=== PATIENT | female | born 1985 | race American Indian/Alaskan Native ===

== ENCOUNTER 2016-10-14 09:29 | Inpatient (IN) | payer MEDICAID ==
--- NOTE | 2016-10-14 09:22 | History and Physical Report ---
History of Present Illness Date of examination: 10/10/16 Chief complaint: Primary C/s for previous myomectomy History of present illness: Past History : 1 Term Births: 0 Premature Births: 0 Living Children: 0 Para: 0 Mult. Births: 0 Prev : 0 Prev. attempt? 0 Aborta: 0 Elect. Ab: 0 Spont. Ab: 0 Ectopics: 0 Past Medical History: Reviewed history from 02/02/2015 and no changes required: Negative Past Medical History Past Surgical History: Reviewed history from 09/18/2015 and no changes required: Myomectomy 5 or more myomas abdominal (09/18/2015) Laparotomy ovarian cystectomy (09/18/2015)Left Past Medical History Abnormal PAP: negative Uterine Anomaly: positive Uterine Surgery (not C/S): positive, myomectomy Social Hx: Patient is Smoking History: Patient has never smoked. Infection History Hx of STD: none HIV Risk Eval: no Hepatitis B Risk Eval: low risk Personal hx. of genital herpes: no Partner hx. of genital herpes: no Rash, Viral, or Febrile illness since last LMP? no Varicella/Chicken Pox Status: Previous Disease TB Risk: no Genetic History Congenital Heart Defect: Mom: no Dad: no Oc Disease: Mom: no Dad: no Thalassemia Mom: no Dad: no Neural Tube Defect Mom: no Dad: no Down's Syndrome Mom: no Dad: no Ulices-Sachs Mom: no Dad: no Sickle Cell Disease/Trait Mom: no Dad: no Hemophilia Mom: no Dad: no Muscular Dystrophy Mom: no Dad: no Cystic Fibrosis Mom: no Dad: no [place] Chorea Mom: no Dad: no Mental Retardation Mom: no Dad: no Fragile X Mom: no Dad: no Other Genetic/Chromosomal Disorder Mom: no Dad: no Child w/other defect Mom: no Dad: no Enviromental Exposures Xray Exposure: no Medication, drug, or alcohol use since LMP: no Chemical/Other Exposure: no Exposure to Cat Liter: no Occupational Exposure to Children: none Active Medications (reviewed today): PLUS 27-1 MG TABS ( VIT-FE FUMARATE-FA) 1 po qd Current Allergies (reviewed today): No known allergies Physical Exam General appearance: well nourished, healthy appearing, no distress Chest/Lungs: respiratory effort normal, lungs clear to auscultation Cardiovascular: normal rate and rhythm Abdomen/GI: soft, nontender Past History - Obstetrical History Expected Date of Delivery: 10/26/16 Actual Gestation: 38 Week(s) 2 Day(s) : 1 Medications and Allergies Allergies Allergy/AdvReac Type Severity Reaction Status Date / Time No Known Allergies Allergy Unverified 09/12/15 08:57 Home Medications Medication Instructions Recorded Confirmed Last Taken Type HYDROcodone/APAP 5-325 [[place] 1 - 2 each PO Q4H PRN #30 tablet 08/31/1509/04/15 Rx 5-325 mg TAB] Ibuprofen [Motrin] 200 mg PO Q6H PRN 09/12/15 09/18/15 09/12/15 History Active Meds: Active Medications Citric Acid/Sodium Citrate (Bicitra) 30 ml PO ONCE ONE Stop: 10/14/16 08:19 Famotidine (Pepcid) 20 mg IV ONCE ONE Stop: 10/14/16 08:19 Cefazolin Sodium (Ancef/Sterile Water 2 Gm/20 Ml) 2 gm in 20 mls @ 80 mls/hr IV PREOP NR PRN Reason: Protocol Lactated Ringer's (Lactated Ringers) 1,000 mls @ 2,250 mls/hr IV PREOP CARRIE Stop: 10/15/16 09:27 Oxytocin/Sodium Chloride (Pitocin/Ns 20 Unit/1000ml Drip) 20 units in 1,000 mls @ 0 mls/hr IV TITR CARRIE PRN Reason: As Directed Lidocaine/Prilocaine (Emla) 1 applic TP ONCE PRN PRN Reason: for bonner catheter insertion Metoclopramide HCl (Reglan) 10 mg IV ONCE ONE Stop: 10/14/16 08:19 Results All other labs normal. Assessment and Plan - Patient Problems (1) Maternal care due to uterine scar from other previous surgery Status: Acute Plan to address problem: Problem # 1: Maternal care due to uterine scar from other previous surgery ( [id number]) Orders: OB follow up ([id number]) Urine Chemstrip (CPT-[id number]) Consent reviewed and signed.The risks and alternatives for this surgery were reviewed with the patient. She was informed of possible bleeding, infection, injury to bowel, bladder, ureters or other adjacent organs. The patient was instructed/informed the following: The normal length of hospital stay for this procedure. Nothing to eat or drink after midnight the evening prior to surgery. Pre-op instruction sheets given. Wound care instructions given. Infection precautions reviewed, patient to call for any signs or symptoms of infection. The usual discomforts associated with this procedure were detailed. Proper use of pain medicines was reviewed. Patient was given ample opportunity to have all her questions answered before signing informed consent. Problem # 2: Group B streptococcus carrier (ICD-V02.51) ([id number]) (2) 38 weeks gestation of Status: Acute (3) Carrier of group B Streptococcus Status: Acute
[~2016-10-14 09:29] MED LIST: ANCEF/STERILE WATER 2 GM/20 ML 2 GM/20 ML SYRINGE IV NR; EMLA TP PRN; LACTATED RINGERS 1,000 ML IV SCH; PITOCin/NS 20 UNIT/1000ML DRIP 20 UNITS/1,000 ML BAG IV SCH
[2016-10-14] MEDS ORDERED: BICITRA PO ONE (10:00)
[2016-10-14] MEDS ORDERED: PEPCID IV ONE (10:00)
[2016-10-14] MEDS ORDERED: REGLAN IV ONE (10:00)
--- NOTE | 2016-10-14 10:10 | Anesthesia Consultation ---
Anesthesia Consult and Med Hx Date of service: 10/14/16 - Airway Anesthetic Teeth Evaluation: Good ROM Head & Neck: Adequate Mental/Hyoid Distance: Adequate Mallampati Class: Class II Intubation Access Assessment: Probably Good - Pre-Operative Health Status ASA Pre-Surgery Classification: ASA2 Proposed Anesthetic Plan: Epidural, Spinal - Pulmonary Hx Smoking: No Hx Asthma: No COPD: No Hx Pneumonia: No - Cardiovascular System Hx Hypertension: No Hx Heart Attack/AMI: No - Central Nervous System Hx Seizures: No Hx Psychiatric Problems: No - Gastrointestinal Hx Gastroesophageal Reflux Disease: Yes (occ) - Endocrine Hx Renal Disease: No Hx End Stage Renal Disease: No Hx Non-Insulin Dependent Diabetes: No Hx Thyroid Disease: No Hx Hypothyroidism: No Hx Hyperthyroidism: No - Hematic Hx Anemia: Yes Hx Sickle Cell Disease: No - Other Systems Hx Alcohol Use: No Hx Substance Use: No Hx Cancer: No Hx Obesity: No
--- NOTE | 2016-10-14 10:11 | Anesthesia Day of Surgery ---
Anesthesia Day of Surgery - Day of Surgery Patient Examined: Yes Patient H&P Reviewed: Yes Patient is NPO: Yes
[2016-10-14] MEDS ORDERED: NARCAN 0.4 MG/1 ML IV PRN ×2 (10:30→16:18)
[2016-10-14] MEDS ORDERED: DILAUDID IV PRN (10:30)
[2016-10-14] MEDS ORDERED: BENADRYL IV PRN (10:30)
[2016-10-14] MEDS ORDERED: ZOFRAN IV PRN ×2 (10:30→16:18)
[2016-10-14] MEDS ORDERED: PHENERGAN PO PRN (11:00)
[2016-10-14] MEDS ORDERED: SODIUM CHLORIDE FLUSH SYRINGE 10 ML IV NR (11:00)
[2016-10-14] MEDS ORDERED: PHENERGAN PR PRN ×2 (11:00→16:18)
[2016-10-14 11:15] LABS: Hematocrit 35.1 % (30.3-42.9); Mean Corpuscular HGB Conc 34 % (30-34); Mean Corpuscular Hemoglobin 30 pg (28-32); Mean Corpuscular Volume 87 fl (79-97); Platelet Count 226 K/mm3 (140-440); Red Blood Count 4.05 M/mm3 (3.65-5.03); Red Cell Distribution Width 14.7 % (13.2-15.2)
[2016-10-14] MEDS ORDERED: ANCEF/STERILE WATER 2 GM/20 ML IV ONE (11:30)
[2016-10-14] MEDS ORDERED: MORPHINE ONE (11:35)
[2016-10-14] MEDS ORDERED: WATER FOR IRRIG STERILE IR ONE (11:40)
[2016-10-14] MEDS ORDERED: NACL 0.9% IR ONE (11:40)
[2016-10-14] MEDS ORDERED: ePHEDrine SULFATE ONE ×2 (12:00→12:31)
[2016-10-14] MEDS ORDERED: NACL 0.9% 1000 ML 1,000 ML ONE (12:49)
[2016-10-14] MEDS ORDERED: ZOFRAN ONE (13:11)
--- NOTE | 2016-10-14 15:11 | Operative Report ---
Operative Report Operative Report: Date of procedure: 10/24/2016 Pre-operative diagnosis: 1. Intrauterine at 38 weeks gestation 2. Previous myomectomy requiring delivery Post-operative diagnosis: 1. Intrauterine at 38 weeks gestation 2. Previous myomectomy requiring delivery 3. Uterine fibroid disease 4. Severe pelvic adhesion disease Procedure name(s): Low transverse section with vertical extension Surgeon: Anai Brooks MD Clinical Application Specialist: Nataly Garcia Anesthesia: Epidural EBL: 1300 mL Complications: None Findings: Liveborn male . Weight 6 lbs. 15 oz. Apgars 8 at 1 minute 9 at 5 minutes. Uterine fibroids. The infant's head was deviated to the maternal left oblique due to displacement of the uterus caused by adhesions of the right anterior surface to the abdominal wall. Procedure: After risks, benefits, and complications and alternatives and consequences, were discussed with patient, and she voiced her understanding and desired to proceed. Patient was taken to the OR, where epidural anesthesia was placed. She was then placed in the left lateral tilt position, and prepped and draped in the usual sterile fashion. After timeout was performed, and an appropriate level of anesthesia was noted, a Pfannenstiel incision was made and extended to the fascia. The fascia was incised and extended in a lateral direction. The overlying fascia was sharply dissected away from the underlying rectus muscles in the superior-inferior direction. The midline was entered bluntly. The vesicouterine fold was incised and with blunt and sharp dissection the bladder flap was created. A transverse incision was made in the lower uterine segment and extended in the superior lateral direction with finger fractionation. We are fluid was noted. The infant's head was high out of the pelvis the lying in the left oblique position due to the adhesions of the uterus to the right anterior abdominal wall. To obtain better access the decision was made to extend the incision laterally as well as to perform a vertical incision. A Kiwi vacuum extractor was applied to the infant' s head with 500 mmHg pressure to again assist with delivery. One application was performed. The was delivered from the cephalic position.The cord was doubly clamped and cut. The infant's mouth and nose were bulb suctioned. And the was given to the resuscitation team present. The placenta was manually extracted. Due to the size of the uterus and adhesions the uterus was unable to be exteriorized however the cavity was cleaned of any products of conception and placental tissue. The incision was reapproximated using 0 Vicryl in a running interlocking stitch. Once hemostasis was noted, Tisseel followed by Surgicel was applied to the anterior surface of the incision. Once hemostasis was noted, Interceed was applied to the anterior aspect of the uterus for adhesion prevention. Once hemostasis was noted, attention was turned to the rectus muscles. Once hemostasis was noted, the fascia was reapproximated using 0 Vicryl in a simple running stitch. The subcuticular adipose tissue was reapproximated using 0 Vicryl in interrupted simple stitch. Once hemostasis was noted, the incision was irrigated with normal saline. The incision was then reapproximated using 4-0 Vicryl on a Myke needle in a subcuticular manner. Patient tolerated the procedure well she was taken to recovery room in stable condition. Counts were correct 3
[2016-10-14] MEDS ORDERED: SODIUM CHLORIDE FLUSH SYRINGE 10 ML IV SCH (16:18)
[2016-10-14] MEDS ORDERED: D5LR 1,000 ML IV SCH (16:18)
[2016-10-14] MEDS ORDERED: TYLENOL PO PRN (16:18)
[2016-10-14] MEDS ORDERED: MILK OF MAGNESIA PO PRN (16:18)
[2016-10-14] MEDS ORDERED: MORPHINE IV PRN ×2 (16:18)
[2016-10-14] MEDS ORDERED: LANSINOH TP PRN (16:18)
[2016-10-14] MEDS ORDERED: PITOCin/NS 20 UNIT/1000ML DRIP 20 UNITS/1,000 ML BAG IV SCH (16:18)
[2016-10-14] MEDS ORDERED: TUCKS PAD TP PRN (16:18)
[2016-10-14] MEDS ORDERED: TYLENOL PR PRN (16:18)
[2016-10-14] MEDS: TORADOL IV SCH (17:20)
[2016-10-14] MEDS: ANCEF/NS 1 GM/50 ML 1 GM/50 ML BAG IV SCH (20:00)
[2016-10-15] MEDS: ANCEF/NS 1 GM/50 ML 1 GM/50 ML BAG IV SCH (04:09)
[2016-10-15 04:14] LABS: Hematocrit 23.7 % (30.3-42.9); Hemoglobin 7.8 gm/dl (10.1-14.3)
[2016-10-15] MEDS ORDERED: BOOSTRIX IM ONE (06:00)
[2016-10-15] MEDS: TORADOL IV SCH (06:35)
--- NOTE | 2016-10-15 06:38 | Progress Note ---
Assessment and Plan - Patient Problems (1) delivery delivered Onset Date: ~10/14/16 Current Visit: Yes Status: Acute Plan to address problem: Postop day #1 s/p primary section; previous myomectomy. Pt sitting on side of bed Ambulating to toilet with some pain. Denies any other complaints. VSS FF below Umb Lochia small Incision D&I H&H 7.8/23.7, drop r/t blood loss from surgery Pt is w/o s/sx of anemia. Doing well s/p c/s P: continue pathway Advance diet and activity as tolerated. to be given H&H results Subjective - Subjective Patient reports: appetite normal, voiding normally, pain well controlled, ambulating normally (pt ambulating to toilet with some pain; denies any dizziness) : doing well Objective - Vital Signs Latest vital signs: Vital Signs Temp Pulse Pulse Pulse Resp BP BP 10/15/16 04:20 98.6 F 119 H 20 92/53 10/14/16 23:45 98.9 F 115 H 20 97/60 10/14/16 20:20 98.4 F 117 H 20 108/65 10/14/16 15:48 97.9 F 84 20 104/62 10/14/16 15:10 97.7 F 84 19 123/76 10/14/16 14:45 94 H 21 123/72 10/14/16 14:30 94 H 21 128/65 10/14/16 14:16 22 10/14/16 14:15 100 H 21 129/72 10/14/16 14:10 87 21 116/62 10/14/16 14:05 89 21 110/62 10/14/16 14:00 87 22 113/67 10/14/16 13:55 97.5 F L 99 H 17 113/61 10/14/16 11:24 141 H 10/14/16 11:19 89 10/14/16 11:14 97.8 F 87 18 10/14/16 11:12 86 10/14/16 11:09 73 10/14/16 11:07 88 10/14/16 11:02 79 10/14/16 10:57 78 10/14/16 10:51 80 10/14/16 10:47 92 H 10/14/16 10:42 85 10/14/16 10:37 93 H 10/14/16 10:31 112 H 10/14/16 10:26 107 H 10/14/16 10:21 92 H 10/14/16 10:16 89 Pulse Ox 10/15/16 04:20 10/14/16 23:45 10/14/16 20:20 10/14/16 15:48 10/14/16 15:10 99 10/14/16 14:45 100 10/14/16 14:30 100 10/14/16 14:16 10/14/16 14:15 99 10/14/16 14:10 99 10/14/16 14:05 99 10/14/16 14:00 100 10/14/16 13:55 100 10/14/16 11:24 82 L 10/14/16 11:19 97 10/14/16 11:14 98 10/14/16 11:12 95 10/14/16 11:09 98 10/14/16 11:07 97 10/14/16 11:02 95 10/14/16 10:57 98 10/14/16 10:51 97 10/14/16 10:47 98 10/14/16 10:42 98 10/14/16 10:37 97 10/14/16 10:31 96 10/14/16 10:26 97 10/14/16 10:21 96 10/14/16 10:16 97 Intake and Output 10/14/16 10/14/16 10/15/16 14:59 22:59 06:59 Intake Total 3020 900 290 Output Total 350 150 550 Balance 2670 750 -260 Intake: IV 3020 300 50 ANCEF/NS 1 GM/50 ML 1 gm 50 50 In 50 ml @ 100 mls/hr IV Q8H CARRIE Rx#:[id number] PITOCin/NS 20 UNIT/1000ML 250 DRIP 20 units In 1,000 ml @ As Directed IV TITR CARRIE Rx#:[id number] Oral 600 240 Output: Urine 350 150 550 Indwelling Catheter 150 550 Other: Total, Intake Amount 120 120 Total, Output Amount 150 350 Weight 240 lb Estimated Blood Loss 1,300 Patient Weight 10/15/16 06:59 Weight 240 lb - Exam Breasts: Present: Cardiovascular: Present: Regular rate Lungs: Present: Normal air movement Abdomen: Present: normal appearance, soft Uterus: Present: normal, fundal height below umbilicus Extremities: Present: normal, edema Deep Tendon Reflex Grade: Normal +2 Incision: Present: normal, dry, intact - Labs Labs: Abnormal lab results 10/14/16 10/15/16 Range/Units 10:50 03:59 WBC 13.0 H (4.5-11.0) K/mm3 Hgb 7.8 L D (10.1-14.3) gm/dl Hct 23.7 L D (30.3-42.9) %
[2016-10-15 10:16] LABS: Hematocrit 22.2 % (30.3-42.9); Hemoglobin 7.3 gm/dl (10.1-14.3)
[2016-10-15] MEDS ORDERED: NACL 0.9% 500 ML 500 ML IV SCH (12:32)
--- NOTE | 2016-10-15 12:39 | Event Note ---
Date: 10/15/16 (H&H 7.3/22.2) made aware of H&H Due to pt being tachycardic P 111 with BP 90/60s Will transfuse 2 units PRC. RN aware Orders in EMR.
[2016-10-15] MEDS: FEOSOL PO SCH (12:49)
[2016-10-15] MEDS: PERCOCET 5/325 PO PRN ×2 (12:50→18:25)
[2016-10-15] MEDS ORDERED: TYLENOL PO ONE (13:00)
--- NOTE | 2016-10-15 13:58 | Query-Anemia ---
Brent Byrd Date:____10/15/16 Hospital Cna/CDS:____[facility] Phone#:____[phone] Exercise your independent professional judgment when responding to this query. Questions asked do not imply a particular answer is desired or expected. We greatly appreciate your clarification on this issue. Clinical Documentation States: A 31/F came in @38 weeks gestation for delivery.She underwent with an EBL of 1300ml. "POST OPERATIVE DIAGNOSIS: 1. Intrauterine at 38 weeks gestation. 2. Previous myomectomy requiring delivery. 3. Uterine fibroid disease 4. Severe pelvic adhesion disease." (Anai Brooks, OP, 10/14/16) EBL- 1300mL ( Anai Brooks, OP, 10/14/16) Clinical Findings: 10/14/16 10/15/16 HB: 12.0 7.8 HCT : 35.1 23.7 Etiology: [ ] Anemia due to acute blood loss [ ] Anemia due to chronic blood loss [ ] Precipitous Drop in Hemoglobin [ ] Precipitous Drop in Hematocrit [ ] Anemia secondary to ESRD [ ] Anemia secondary to neoplastic disease [ ] Iron deficiency anemia due to malabsorption [ ] GI Bleed from: [ ] Anemia of chronic disease ,Other: [ ] Other: [ ] Unable to determine [ ] Comment/Explanation: Present on Admission: [ ] Yes (Y) [ ] Clinically undeterminable (W) [ ] No (N) Please also document response in your Progress Notes and/or Discharge Summary and indicate if the condition was present on admission. ADRIEL
--- NOTE | 2016-10-15 15:03 | Progress Note ---
Subjective Date of service: 10/15/16 Interval history: 1st POD after Patient is in the bed, comfortable. Pain is well controlled with pain meds. Ambulated well. No residual neurological deficit. No anesthesia complications Objective - Constitutional Vitals: Vital Signs - 12hr 10/15/16 10/15/16 10/15/16 04:20 08:18 12:50 Temperature 98.6 F 98.2 F Pulse Rate Pulse Rate [ 119 H 111 H Right From Monitor] Respiratory 20 20 20 Rate Blood Pressure Blood Pressure 92/53 96/52 [Right Arm] 10/15/16 10/15/16 10/15/16 14:38 14:42 14:53 Temperature 98.6 F 98.4 F 98.5 F Pulse Rate 109 H 109 H 109 H Pulse Rate [ Right From Monitor] Respiratory 20 20 20 Rate Blood Pressure 109/68 103/69 117/69 Blood Pressure [Right Arm] - Labs CBC & Chem 7: 10/15/16 09:58 Labs: Abnormal lab results 10/14/16 10/15/16 10/15/16 Range/Units 10:50 03:59 09:58 Hgb 7.8 L D 7.3 L (10.1-14.3) gm/dl Hct 23.7 L D 22.2 L (30.3-42.9) % Crossmatch See Detail
[2016-10-15] MEDS: MOTRIN PO PRN (18:25)
[2016-10-15 20:39] LABS: Hematocrit 27.6 % (30.3-42.9); Hemoglobin 9.1 gm/dl (10.1-14.3)
[2016-10-16] MEDS: MOTRIN PO PRN ×3 (00:25→13:07)
[2016-10-16] MEDS: PERCOCET 5/325 PO PRN ×3 (00:25→13:07)
[2016-10-16] MEDS: FEOSOL PO SCH (10:45)
--- NOTE | 2016-10-16 13:27 | Discharge Summary ---
Providers - Providers Date of Admission: 10/14/16 09:29 Date of discharge: 10/16/16 (pt desires d/c today) Attending physician: CHUCKIE VIVAR 10/14/16 16:18 Consult to Marketing Director [CONS] Routine Reason For Exam: Primary care physician: CHUCKIE VIVAR Hospitalization Reason for admission: section Delivery: Procedure: primary low transverse (previous myomectomy) Episiotomy: none Laceration: none Incision: normal, dry, intact Other procedures: none complications: transfusion (pt received 2units PRC) Discharge diagnosis: IUP at term delivered baby: male Hospital course: uncomplicated section Pt requesting d/c today VSS FF below umb Lochia scant Incision D&I H&H 9.09/05.6 post transfusion; drop r/t blood loss from surgery. Pt w/o s/sx of anemia Doing well s/p section P: d/c today with instructions RTO 1 week for postop visit and son's circumcision. RX on chart. Condition at discharge: Good Disposition: DISCHARGED TO HOME OR SELFCARE - Discharge Diagnoses (1) delivery delivered Status: Acute Comment: rto 1 week postop visit Plan - Discharge Medications Prescriptions: Docusate Sodium [Colace] 100 mg PO BID PRN #30 capsule PRN Reason: Constip Unreliev By Mom/Or Npo Ferrous Sulfate [Feosol 325 MG tab] 325 mg PO BID #90 tablet Ibuprofen [Motrin 800 MG tab] 800 mg PO TID PRN #30 tablet PRN Reason: Pain Lidocain2.5%/Prilocai2.5% [Emla] 5 gm TP ONCE #1 tube oxyCODONE /ACETAMINOPHEN [Percocet 5/325 mg] 1 - 2 tab PO Q4HR PRN #30 tablet PRN Reason: Pain - Provider Discharge Summary Activity: routine, no sex for 6 weeks, no heavy lifting 4 weeks, no strenuous exercise Diet: routine Instructions: routine Additional instructions: [] Smoking cessation referral if applicable(refer to patient education folder for contact #) [] Refer to [facility]'s [facility] Booklet Call your doctor immediately for: * Fever > 100.5 * Heavy vaginal bleeding ( >1 pad per hour) * Severe persistent headache * Shortness of breath * Reddened, hot, painful area to leg or breast * Drainage or odor from incision. * Keep incision clean and dry at all times and follow doctor's instructions regarding bathing/showering - Follow up plan Follow up: CHUCKIE VIVAR MD [Primary Care Provider] - 7 Days (Congratulations! Please call [phone] to schedule your postoperative visit and your son's circumcision in 1 week. Bring the EMLA cream with you to his visit. Take medications as prescribed. Call with concerns. )
[2016-10-16 18:27] VITALS: BP 100/74
== END 2016-10-16 16:30 | disposition home or self-care (01) | DRG 765 ==
LOC: APU 09:29 → OB 16:03
PROVIDERS: ADMIT Obstetrics & Gynecology; ATTEND Obstetrics & Gynecology
PROC: 10D00Z1 Extraction of Products of Conception, Low, Open Approach (ICD-10-PCS; principal; 2016-10-14)
PROC: 30233N1 Transfusion of Nonautologous Red Blood Cells into Peripheral Vein, Percutaneous Approach (ICD-10-PCS; 2016-10-15)
DX: O99.824 Streptococcus B carrier state complicating childbirth (principal); D62 Acute posthemorrhagic anemia; K21.9 Gastro-esophageal reflux disease without esophagitis; O99.62 Diseases of the digestive system complicating childbirth; O99.89 Other specified diseases and conditions complicating pregnancy, childbirth and the puerperium; D25.9 Leiomyoma of uterus, unspecified; Z37.0 Single live birth; Z98.890 Other specified postprocedural states; Z3A.38 38 weeks gestation of pregnancy; O99.019 Anemia complicating pregnancy, unspecified trimester; D64.9 Anemia, unspecified; O34.29 Maternal care due to uterine scar from other previous surgery
CPT/HCPCS: 36415; 85014; 85018; 85027; 86592; 86850; 86900; 86901; 86920; 90471; 90715; 99211; C9250; G0463; J0690; J1170; J1200; J1885; J2270; J2405; J2590; J2765; J7030; J7040; J7120; J7121; P9016